=== PATIENT | female | born 1965 | race Caucasian/White ===

== ENCOUNTER 2017-04-08 07:27 | Day surgery (SDC) | payer BC, OTHER ==
[~2017-04-08 07:27] MED LIST: Sodium Chloride 0.9% 10 ML Syringe FLUSH PRN; Sodium Chloride 0.9% 2.5 ML Syringe FLUSH PRN; ceFAZolin 2 GM in Premix Bag 1 BAG IV ONE
[2017-04-08] MEDS ORDERED: Fluorescein 5 ML Vial ONE (07:36)
[2017-04-08] MEDS: Lactated Ringers 1,000 ML IV SCH ×2 (07:48→11:55)
[2017-04-08] MEDS ORDERED: Octyl 2-Cyanoacrylate 1 Tube ONE (07:57)
--- NOTE | 2017-04-08 08:21 | PCM.PREANE ---
Preanesthetic Assessment - Anesthesia/Transfusion/Family Hx Anesthesia History: Prior Anesthesia Reaction Type of Anesthesia Reaction: Excessive Nausea/Vomiting Family History of Anesthesia Reaction: No Transfusion History: No Prior Transfusion(s) - Review of Systems General: No Symptoms Pulmonary: No Symptoms Cardiovascular: No Symptoms Gastrointestinal: No Symptoms Neurological: No Symptoms Other: Reports: None - Physical Assessment NPO Status Date: 04/07/17 O2 Sat by Pulse Oximetry: 97 Respiratory Rate: 16 Vital Signs: Last Vital Signs Temp 96.5 C H 04/08/17 07:46 Pulse 75 04/08/17 07:46 Resp 16 04/08/17 07:46 BP 125/77 04/08/17 07:46 Pulse Ox 97 04/08/17 07:46 Height: 1.55 m Weight: 73.482 kg ASA Class: 2 Mental Status: Alert & Oriented x3 Airway Class: Mallampati = 2 Dentition: Reports: Normal Dentition ROM/Head Extension: Full Lungs: Clear to Auscultation, Normal Respiratory Effort Cardiovascular: Regular Rate, Regular Rhythm - Lab Values: Laboratory Last Values HCG, Qual NEGATIVE (NEG) 04/07/17 09:00 Blood Type A POSITIVE 04/07/17 09:00 Antibody Screen NEGATIVE 04/07/17 09:00 - Allergies Allergies/Adverse Reactions: Allergies Allergy/AdvReac Type Severity Reaction Status Date / Time Penicillins Allergy Swelling Verified 04/05/17 12:46 - Anesthesia Plan Pre-Op Medication Ordered: Other (scop patch) - Acknowledgements Anesthesia Type Planned: General Anesthesia Pt an Appropriate Candidate for the Planned Anesthesia: Yes Alternatives and Risks of Anesthesia Discussed w Pt/Guardian: Yes Pt/Guardian Understands and Agrees with Anesthesia Plan: Yes PreAnesthesia Questionnaire HEENT History: Reports: Other (See Below) Other HEENT History: wears glasses Cardiovascular History: Reports: Hypertension Respiratory History: Reports: None Gastrointestinal History: Reports: GERD Genitourinary History: Reports: None 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: Musculoskeletal History: Reports: Osteoarthritis Neurological History: Reports: None Psychiatric History: Reports: Anxiety Endocrine/Metabolic History: Reports: None - Past Surgical History Head Surgeries/Procedures: Reports: None Female Surgical History: Reports: Section, Tubal Ligation, Other ( See Below) Other Female Surgeries/Procedures: hx colposcopy cervix with bx, abdominoplasty Musculoskeletal Surgical History: Reports: Arthroscopic Knee Dermatological Surgical History: Reports: Plastic Surgical Reconstruction/Repair - SUBSTANCE USE Smoking Status *Q: Never Smoker Recreational Drug Use History: No - HOME MEDS Home Medications: Home Meds Metoprolol Succinate 25 mg PO DAILY 04/05/17 [History] Omeprazole 40 mg PO DAILY 04/05/17 [History] Triamterene/Hydrochlorothiazid [Triamterene-HCTZ 37.5-25 MG] 1 tab PO DAILY PRN 04/05/17 [History] - CURRENT (IN HOUSE) MEDS Current Meds: Current Medications Lactated Ringer's (Ringers, Lactated) 1,000 mls @ 125 mls/hr IV ASDIRECTED GAEL Last Admin: 04/08/17 07:48 Dose: 125 mls/hr Sodium Chloride (Saline Flush) 10 ml FLUSH ASDIRECTED PRN PRN Reason: Keep Vein Open Sodium Chloride (Saline Flush) 2.5 ml FLUSH ASDIRECTED PRN PRN Reason: Keep Vein Open Discontinued Medications Fluorescein Sodium (Ak-Fluor) Confirm Administered Dose 5 ml .ROUTE .STK-MED ONE Stop: 04/08/17 07:37 Cefazolin Sodium/Dextrose 2 gm (/ Premix) 50 mls @ 100 mls/hr IV ONETIME ONE Stop: 04/07/17 14:15 Octyl Cyanoacrylate (Dermabond Advance) Confirm Administered Dose 1 applic .ROUTE .STK-MED ONE Stop: 04/08/17 07:58
[2017-04-08] MEDS ORDERED: Scopolamine 1.5 MG Transdermal Patch TRDERM PRN (08:22)
[2017-04-08] MEDS ORDERED: Scopolamine 1.5 MG Transdermal Patch ONE (08:28)
[2017-04-08] MEDS ORDERED: Propofol 200 MG/20 ML SDV ONE ×2 (08:29→10:24)
[2017-04-08] MEDS ORDERED: Lidocaine 2% 5 ML SDV ONE (08:29)
[2017-04-08] MEDS ORDERED: Midazolam 1 MG/ML 2 ML SDV ONE (08:29)
[2017-04-08] MEDS ORDERED: fentaNYL 100 MCG/2 ML SDV ONE (08:29)
[2017-04-08] MEDS ORDERED: Ondansetron 4 MG/2 ML SDV ONE (08:30)
[2017-04-08] MEDS ORDERED: Neostigmine Methylsulfate 1 MG/ML 5 ML Syringe ONE (08:30)
[2017-04-08] MEDS ORDERED: Ketorolac 30 MG/ML SDV ONE (08:30)
[2017-04-08] MEDS ORDERED: Rocuronium 10 MG/ML 10 ML Syringe ONE (08:30)
[2017-04-08] MEDS ORDERED: HYDROmorphone 2 MG/ML Syringe ONE (08:35)
[2017-04-08] MEDS ORDERED: Clindamycin Phosphate in D5W 50 ML ONE (09:02)
[2017-04-08] MEDS ORDERED: Clindamycin Phosphate in D5W 600 MG in Premix Bag 50 BAG IV ONE ×2 (09:02)
[2017-04-08] MEDS ORDERED: Furosemide 40 MG/4 ML VIAL ONE (09:22)
[2017-04-08] MEDS ORDERED: ePHEDrine 50 MG/ML SDV ONE ×3 (09:23→11:06)
[2017-04-08] MEDS ORDERED: fentaNYL 100 MCG/2 ML SDV IVPUSH PRN (09:55)
[2017-04-08] MEDS ORDERED: HYDROmorphone 2 MG/ML Syringe IVPUSH ONE (09:55)
[2017-04-08] MEDS ORDERED: Promethazine 25 MG/ML SDV IM PRN (10:32)
[2017-04-08] MEDS ORDERED: Ondansetron 4 MG/2 ML SDV IVPUSH PRN (10:32)
[2017-04-08] MEDS ORDERED: Morphine 2 MG/ML Syringe IVPUSH PRN (10:32)
[2017-04-08] MEDS ORDERED: Acetaminophen/oxyCODONE 325-5 MG Tab PO PRN (10:32)
[2017-04-08] MEDS ORDERED: Ketorolac 30 MG/ML SDV IVPUSH ONE (10:32)
[2017-04-08] MEDS ORDERED: Morphine 4 MG/ML Syringe IVPUSH PRN (10:32)
[2017-04-08] MEDS ORDERED: Ketorolac 30 MG/ML SDV IVPUSH PRN (10:32)
--- NOTE | 2017-04-08 10:37 | PCM.OPNOTE ---
- General Post-Op/Procedure Note Date of Surgery/Procedure: 04/08/17 Pre Op Diagnosis: Bleeding Post-Op Diagnosis: Same Anesthesia Technique: General ET Tube Primary Surgeon: Ollie Downey Preflight Mechanic: Cesia Ruvalcaba EBL in mLs: 70 Complications: None Condition: Good
--- NOTE | 2017-04-08 10:49 | PCM.POSTAN ---
POST ANESTHESIA ASSESSMENT - MENTAL STATUS Mental Status: Alert, Oriented - RESPIRATORY Respiratory Status: Respiratory Rate WNL, Airway Patent, O2 Saturation Stable - CARDIOVASCULAR CV Status: Pulse Rate WNL, Blood Pressure Stable - GASTROINTESTINAL GI Status: No Symptoms - POST OP HYDRATION Hydration Status: Adequate & Stable
--- NOTE | 2017-04-08 11:53 | OR ---
SURGEON: Ollie Downey MD DATE OF PROCEDURE: 04/08/2017 PREOPERATIVE DIAGNOSIS: Menometrorrhagia. POSTOPERATIVE DIAGNOSIS: Menometrorrhagia. OPERATION PERFORMED: Total laparoscopic hysterectomy, laparoscopic bilateral salpingo-oophorectomy, and cystoscopy. PRODUCTION HARDENER: OPHELIA Bahena ANESTHESIA: General endotracheal intubation, Carlitos Jones and Dr. Gama. ESTIMATED BLOOD LOSS: 70 mL. COMPLICATIONS: None. FINDINGS: Uterus about 10-week size, both ovaries essentially were normal. There was adhesion from her previous section around the cervix. INDICATION FOR SURGERY: [place] refer to the admit note. DESCRIPTION OF PROCEDURE: The patient was brought to the OR, properly identified, and after adequate level of general anesthesia, the Morales catheter was placed in the bladder and the Mc surgical manipulator was placed and appropriate balloon was inflated, and the operation shifted abdominally. Stab wound done beneath the umbilicus. The Veress needle was placed in the peritoneal cavity and that cavity insufflated to 6 L of carbon dioxide. The skin incision was enlarged to accommodate the 5 mm trocar and utilizing the Visiport technique the abdomen was entered laparoscopically. Once we did that, we placed the patient in steep Trendelenburg and intestine was reflected away from the operative field and 10- 12 trocar placed in the left iliac fossa and 5 mm trocar in the right iliac fossa. Operation started by identifying the landmark of the pelvis, then next step is the superior pedicle coagulated and transected using the Nnamdi Harmonic scapula on both sides making sure the ureter is away from harm's way. The round ligament coagulated and transected in the same manner and then the anterior leaf of the broad ligament dissected downward medially pushing the bladder completely away from the operative field, and then the uterine vessel was coagulated and transected at the level of the internal rings using the Nnamdi Harmonic scapula, and circular incision around the tip of the manipulator done, detaching the cervix from its attachment to the vagina. Inspection of the pelvis shows no oozing and no bleeding. We proceeded to close the vaginal cuff laparoscopically using 2-0 PDS interrupted. As I inspected the pedicles and dissection of the base of the bladder, I have noticed that there is thinning of the serosal layer of the bladder because of the dissection, so prophylactically I placed three PDS sutures around this area to approximate the serosa of the bladder and restoring back to normal anatomy, and I am just going to leave the Morales catheter in the bladder for couple of days postoperatively to make sure that the bladder is healed adequately. Once we did that and then the abdomen was deflated and Morales catheter was removed, cystoscopy was performed, the bladder was fine, and both ureteric orifices were seen with the dye coming from both of them. Thus, the patency of both ureters were verified. Satisfied with these findings, the instrument and hardware were retrieved from the abdomen and the vagina, the Morales catheter replaced back in the bladder for drainage and the multiple laparoscopic incisions were closed in layers. Instrument and sponge count were correct. The patient tolerated the procedure well and went to recovery room in stable general condition. PRIYA / VAIBHAV /[id number]
[2017-04-09] MEDS: Acetaminophen/oxyCODONE 325-5 MG Tab PO PRN ×2 (00:14→08:29)
[2017-04-09 05:50] LABS: CHLORIDE,CL 106 mmol/L (98-110); SODIUM,NA 137 mmol/L (136-146)
--- NOTE | 2017-04-09 08:40 | PCM.SURGPN ---
- General Info Date of Service: 04/09/17 POD#: 1 Functional Status: Reports: Pain Controlled - Review of Systems General: Reports: No Symptoms HEENT: Reports: No Symptoms Pulmonary: Reports: No Symptoms Cardiovascular: Reports: No Symptoms Gastrointestinal: Reports: No Symptoms Genitourinary: Reports: No Symptoms Musculoskeletal: Reports: No Symptoms Skin: Reports: No Symptoms Neurological: Reports: No Symptoms Psychiatric: Reports: No Symptoms - Patient Data Vitals - Most Recent: Last Vital Signs Temp 37.3 C 04/09/17 05:00 Pulse 65 04/09/17 05:00 Resp 20 04/09/17 05:00 BP 94/51 L 04/09/17 05:00 Pulse Ox 94 L 04/09/17 05:00 Weight - Most Recent: 73.482 kg I&O - Last 24 Hours: Intake & Output 04/08/17 04/09/17 04/09/17 22:59 06:59 14:59 Intake Total 2203 700 Output Total 400 1150 Balance 1803 -450 Lab Results Last 24 Hrs: Laboratory Results - last 24 hr 04/09/17 04/09/17 Range/Units 04:41 04:41 WBC 9.33 (4.0-11.0) K/uL RBC 3.47 L (4.30-5.90) M/uL Hgb 10.3 L (12.0-16.0) g/dL Hct 31.7 L (36.0-46.0) % MCV 91.4 (80.0-98.0) fL MCH 29.7 (27.0-32.0) pg MCHC 32.5 (31.0-37.0) g/dL RDW Std Deviation 44.5 (28.0-62.0) fl RDW Coeff of Froylan 14 (11.0-15.0) % Plt Count 253 (150-400) K/uL MPV 9.30 (7.40-12.00) fL Neut % (Auto) 77.9 (48.0-80.0) % Lymph % (Auto) 15.1 L (16.0-40.0) % [place] % (Auto) 5.7 (0.0-15.0) % Eos % (Auto) 1.1 (0.0-7.0) % Baso % (Auto) 0.2 (0.0-1.5) % Neut # (Auto) 7.3 H (1.4-5.7) K/uL Lymph # (Auto) 1.4 (0.6-2.4) K/uL [place] # (Auto) 0.5 (0.0-0.8) K/uL Eos # (Auto) 0.1 (0.0-0.7) K/uL Baso # (Auto) 0.0 (0.0-0.1) K/uL Nucleated RBC % 0.0 /100WBC Nucleated RBCs # 0 K/uL Sodium 137 (136-146) mmol/L Potassium 4.0 (3.5-5.1) mmol/L Chloride 106 (98-110) mmol/L Carbon Dioxide 24 (21-31) mmol/L BUN 9 (6.0-23.0) mg/dL Creatinine 0.7 (0.6-1.5) mg/dL Est Cr Clr Drug Dosing 71.75 mL/min Estimated GFR (MDRD) > 60.0 ml/min Glucose 103 (60-110) mg/dL Calcium 8.0 L (8.8-10.8) mg/dL Med Orders - Current: Current Medications Fentanyl (Sublimaze) 50 mcg IVPUSH Q5M PRN PRN Reason: Pain (severe 7-10) Stop: 04/09/17 09:55 Lactated Ringer's (Ringers, Lactated) 1,000 mls @ 125 mls/hr IV ASDIRECTED [facility] Last Infusion: 04/08/17 21:15 Dose: Infused Ketorolac Tromethamine (Toradol) 30 mg IVPUSH Q6H PRN PRN Reason: Pain (severe 7-10) Stop: 04/13/17 10:32 Last Admin: 04/08/17 18:50 Dose: 30 mg Morphine Sulfate (Morphine) 2 mg IVPUSH Q2H PRN PRN Reason: Pain (severe 7-10) Morphine Sulfate (Morphine) 4 mg IVPUSH Q2H PRN PRN Reason: Pain (severe 7-10) Ondansetron HCl (Zofran) 4 mg IVPUSH Q6H PRN PRN Reason: Nausea/Vomiting Oxycodone/Acetaminophen (Percocet 325-5 Mg) 1 tab PO Q4H PRN PRN Reason: Pain (moderate 4-6) Last Admin: 04/08/17 16:47 Dose: 1 tab Oxycodone/Acetaminophen (Percocet 325-5 Mg) 2 tab PO Q4H PRN PRN Reason: Pain (moderate 4-6) Last Admin: 04/09/17 08:29 Dose: 2 tab Promethazine HCl (Phenergan) 25 mg IM Q6H PRN PRN Reason: Nausea/Vomiting Scopolamine (Transderm-Scop) 1.5 mg TRDERM Q72H PRN PRN Reason: Nausea/Vomiting Sodium Chloride (Saline Flush) 10 ml FLUSH ASDIRECTED PRN PRN Reason: Keep Vein Open Sodium Chloride (Saline Flush) 2.5 ml FLUSH ASDIRECTED PRN PRN Reason: Keep Vein Open Discontinued Medications Ephedrine Sulfate (Ephedrine Sulfate) Confirm Administered Dose 50 mg .ROUTE .STK-MED ONE Stop: 04/08/17 09:24 Ephedrine Sulfate (Ephedrine Sulfate) Confirm Administered Dose 50 mg .ROUTE .STK-MED ONE Stop: 04/08/17 11:06 Last Admin: 04/08/17 13:05 Dose: Not Given Ephedrine Sulfate (Ephedrine Sulfate) Confirm Administered Dose 50 mg .ROUTE .STK-MED ONE Stop: 04/08/17 11:07 Last Admin: 04/08/17 13:05 Dose: Not Given Fentanyl (Sublimaze) Confirm Administered Dose 300 mcg .ROUTE .STK-MED ONE Stop: 04/08/17 08:30 Fluorescein Sodium (Ak-Fluor) Confirm Administered Dose 5 ml .ROUTE .STK-MED ONE Stop: 04/08/17 07:37 Furosemide (Lasix) Confirm Administered Dose 40 mg .ROUTE .STK-MED ONE Stop: 04/08/17 09:23 Glycopyrrolate () Confirm Administered Dose 1 mg .ROUTE .STK-MED ONE Stop: 04/08/17 08:31 Hydromorphone HCl (Dilaudid) Confirm Administered Dose 2 mg .ROUTE .STK-MED ONE Stop: 04/08/17 08:36 Hydromorphone HCl (Dilaudid) 0 mg IVPUSH ONETIME ONE Stop: 04/08/17 09:56 Last Admin: 04/08/17 13:04 Dose: Not Given Cefazolin Sodium/Dextrose 2 gm (/ Premix) 50 mls @ 100 mls/hr IV ONETIME ONE Stop: 04/07/17 14:15 Last Admin: 04/08/17 13:05 Dose: Not Given Clindamycin Phosphate 600 mg/ (Premix) 50 mls @ 100 mls/hr IV ONETIME ONE Stop: 04/08/17 09:31 Last Admin: 04/08/17 09:00 Dose: 100 mls/hr Clindamycin Phosphate (Cleocin In D5w) Confirm Administered Dose 50 mls @ as directed .ROUTE .STK-MED ONE Stop: 04/08/17 09:03 Last Admin: 04/08/17 13:04 Dose: Not Given Ketorolac Tromethamine (Toradol) Confirm Administered Dose 30 mg .ROUTE .STK- MED ONE Stop: 04/08/17 08:31 Ketorolac Tromethamine (Toradol) 30 mg IVPUSH ONETIME ONE Stop: 04/08/17 10:33 Last Admin: 04/08/17 13:04 Dose: Not Given Lidocaine (Xylocaine-Mpf 2%) Confirm Administered Dose 10 ml .ROUTE .STK-MED ONE Stop: 04/08/17 08:30 Midazolam HCl (Versed 1 Mg/Ml) Confirm Administered Dose 2 mg .ROUTE .STK-MED ONE Stop: 04/08/17 08:30 Neostigmine Methylsulfate (Neostigmine) Confirm Administered Dose 5 mg .ROUTE .STK-MED ONE Stop: 04/08/17 08:31 Octyl Cyanoacrylate (Dermabond Advance) Confirm Administered Dose 1 applic .ROUTE .STK-MED ONE Stop: 04/08/17 07:58 Ondansetron HCl (Zofran) Confirm Administered Dose 4 mg .ROUTE .STK-MED ONE Stop: 04/08/17 08:31 Propofol (Diprivan 20 Ml) Confirm Administered Dose 400 mg .ROUTE .STK-MED ONE Stop: 04/08/17 08:30 Propofol (Diprivan 20 Ml) Confirm Administered Dose 200 mg .ROUTE .STK-MED ONE Stop: 04/08/17 10:25 Rocuronium [place] (Zemuron) Confirm Administered Dose 100 mg .ROUTE .STK-MED ONE Stop: 04/08/17 08:31 Scopolamine (Transderm-Scop) Confirm Administered Dose 1.5 mg .ROUTE .STK-MED ONE Stop: 04/08/17 08:29 Last Admin: 04/08/17 08:33 Dose: 1.5 mg - Exam Wound/Incisions: Healing Well General: Alert, Oriented HEENT: Pupils Equal Neck: Supple Lungs: Clear to Auscultation, Normal Respiratory Effort Cardiovascular: Regular Rate, Regular Rhythm GI/Abdominal Exam: Normal Bowel Sounds, Soft, Non-Tender, No Organomegaly, No Distention, No Abnormal Bruit, No Mass, Pelvis Stable Extremities: Normal Inspection, Normal Range of Motion, Non-Tender, No Pedal Edema, Normal Capillary Refill Skin: Warm, Dry, Intact Neurological: No New Focal Deficit Psy/Mental Status: Alert, Normal Affect, Normal Mood - Problem List Review Problem List Initiated/Reviewed/Updated: Yes - My Orders Last 24 Hours: Active Orders 24 hr Category Date Time Status Patient Status [ADT] Routine ADT 04/08/17 10:32 Active Antiembolic Devices [RC] PER UNIT ROUTINE Care 04/08/17 10:33 Active Communication Order [RC] DAILY Care 04/08/17 13:21 Active Notify Provider Vital Signs [RC] ASDIRECTED Care 04/08/17 10:32 Active Oxygen Therapy [RC] ASDIRECTED Care 04/08/17 10:32 Active RT Incentive Spirometry [RC] Q2HWA Care 04/08/17 10:32 Active Up With Assistance [RC] PER UNIT ROUTINE Care 04/08/17 10:32 Active Up ad Laura [RC] PER UNIT ROUTINE Care 04/08/17 10:32 Active Urinary Catheter Removal [RC] Per Unit Routine Care 04/08/17 10:32 Active Vital Signs [RC] PER UNIT ROUTINE Care 04/08/17 10:32 Active Regular Diet [DIET] Diet 04/08/17 Lunch Active Acetaminophen/oxyCODONE [Percocet 325-5 MG] Med 04/08/17 10:32 Active 1 tab PO Q4H PRN Acetaminophen/oxyCODONE [Percocet 325-5 MG] Med 04/08/17 10:32 Active 2 tab PO Q4H PRN Ketorolac [Toradol] Med 04/08/17 10:32 Active 30 mg IVPUSH Q6H PRN Morphine Med 04/08/17 10:32 Active 2 mg IVPUSH Q2H PRN Morphine Med 04/08/17 10:32 Active 4 mg IVPUSH Q2H PRN Ondansetron [Zofran] Med 04/08/17 10:32 Active 4 mg IVPUSH Q6H PRN Promethazine [Phenergan] Med 04/08/17 10:32 Active 25 mg IM Q6H PRN Scopolamine [Transderm-Scop] Med 04/08/17 08:22 Active 1.5 mg TRDERM Q72H PRN fentaNYL [Sublimaze] Med 04/08/17 09:55 Active 50 mcg IVPUSH Q5M PRN Peripheral IV Discontinue [OM.PC] Routine Oth 04/08/17 10:32 Ordered Sequential Compression Device [OM.PC] Per Unit Routine Oth 04/08/17 10:32 Ordered Resuscitation Status Routine Resus Stat 04/08/17 10:32 Ordered Medication Orders Fentanyl (Sublimaze) 50 mcg IVPUSH Q5M PRN PRN Reason: Pain (severe 7-10) Stop: 04/09/17 09:55 Lactated Ringer's (Ringers, Lactated) 1,000 mls @ 125 mls/hr IV ASDIRECTED GAEL Last Infusion: 04/08/17 21:15 Dose: 125 mls/hr Admin: 04/08/17 11:55 Dose: 125 mls/hr Infusion: 04/08/17 11:55 Dose: 125 mls/hr Admin: 04/08/17 07:48 Dose: 125 mls/hr Ketorolac Tromethamine (Toradol) 30 mg IVPUSH Q6H PRN PRN Reason: Pain (severe 7-10) Stop: 04/13/17 10:32 Last Admin: 04/08/17 18:50 Dose: 30 mg Morphine Sulfate (Morphine) 2 mg IVPUSH Q2H PRN PRN Reason: Pain (severe 7-10) Morphine Sulfate (Morphine) 4 mg IVPUSH Q2H PRN PRN Reason: Pain (severe 7-10) Ondansetron HCl (Zofran) 4 mg IVPUSH Q6H PRN PRN Reason: Nausea/Vomiting Oxycodone/Acetaminophen (Percocet 325-5 Mg) 1 tab PO Q4H PRN PRN Reason: Pain (moderate 4-6) Last Admin: 04/08/17 16:47 Dose: 1 tab Oxycodone/Acetaminophen (Percocet 325-5 Mg) 2 tab PO Q4H PRN PRN Reason: Pain (moderate 4-6) Last Admin: 04/09/17 08:29 Dose: 2 tab Admin: 04/09/17 00:14 Dose: 2 tab Promethazine HCl (Phenergan) 25 mg IM Q6H PRN PRN Reason: Nausea/Vomiting Scopolamine (Transderm-Scop) 1.5 mg TRDERM Q72H PRN PRN Reason: Nausea/Vomiting Sodium Chloride (Saline Flush) 10 ml FLUSH ASDIRECTED PRN PRN Reason: Keep Vein Open Sodium Chloride (Saline Flush) 2.5 ml FLUSH ASDIRECTED PRN PRN Reason: Keep Vein Open - Assessment Assessment (Free Text/Narrative):: Status post evaluation BSO and cystoscopy postoperative day #1 the patient is doing well and she is going home today - Plan Plan (Free Text/Narrative):: Postvasectomy instruction is given to the patient and patient instructed how to take care of her Morales catheter she will be sent home with a Morales catheter prophylactically prescription for Percocet 7.5/325 for pain is given a prescription for Macrobid 100 mg by mouth twice a day for 7-10 days is given follow-up examination next week
== END 2017-04-09 11:37 | disposition home or self-care (01) ==
LOC: MW.SDS 07:27 → MW.MS 10:43 → MW.SDS 04-09 11:37
PROVIDERS: ATTEND Obstetrics & Gynecology
DX: N80.0 Endometriosis of uterus (principal); K21.9 Gastro-esophageal reflux disease without esophagitis; I10 Essential (primary) hypertension; F32.9 Major depressive disorder, single episode, unspecified; F43.20 Adjustment disorder, unspecified; Z88.0 Allergy status to penicillin; Z79.899 Other long term (current) drug therapy; Z98.890 Other specified postprocedural states; Z98.51 Tubal ligation status
CPT/HCPCS: 36415; 58552; 80048; 84703; 85025; 86850; 86900; 86901; A9270; J1170; J1885; J1940; J2250; J2405; J3010; J7120; 00840; 88307; J2704

== ENCOUNTER 2017-09-29 13:07 | Observation (INO) | payer BC, OTHER ==
[2017-09-29] MEDS ORDERED: Famotidine 20 MG/2 ML SDV IVPUSH ONE (13:15)
[2017-09-29] MEDS ORDERED: Sodium Chloride 0.9% 10 ML Syringe FLUSH PRN (13:15)
[2017-09-29] MEDS ORDERED: Sodium Chloride 0.9% 2.5 ML Syringe FLUSH PRN (13:15)
[2017-09-29] MEDS ORDERED: Sodium Chloride 0.9% 1,000 ML IV ONE (13:15)
[2017-09-29] MEDS ORDERED: Aspirin 81 MG Tab.Chew PO ONE ×2 (13:15→13:20)
--- NOTE | 2017-09-29 13:23 | EDM.PDOC ---
ED HPI GENERAL MEDICAL PROBLEM - General Chief Complaint: Chest Pain Stated Complaint: CHEST PAIN Time Seen by Provider: 09/29/17 13:21 Source of Information: Reports: Patient History Limitations: Reports: No Limitations - History of Present Illness INITIAL COMMENTS - FREE TEXT/NARRATIVE: HISTORY AND PHYSICAL: []52-year-old presenting with midsternal chest pain History of Present Illness: []Patient said pain started at 8:00 this morning. 11/14. Patient has strong family history of heart disease myocardial infarction One of her uncles around age of 50 with [place] father from cancer Relates to being under a lot of stress uncle just one month call MOther diagnosed with lung cancer [place] ill Review of Systems: As per history of present illness and below otherwise all systems reviewed and negative. Past medical history: As per history of present illness and as reviewed below otherwise noncontributory. Surgical history: As per history of present illness and as reviewed below otherwise noncontributory. Social history: No reported history of drug or alcohol abuse. Family history: As per history of present illness and as reviewed below otherwise noncontributory. Physical exam: Alert and oriented female answering questions in full sentences without shortness of breath. HEENT: Atraumatic, normocehpalic, pupils reactive, negative for conjunctival pallor or scleral icterus, mucous membranes moist, throat clear, neck supple, nontender, trachea midline. Lungs: Clear to auscultation, breath sounds equal bilaterally, chest non tender. Heart: S1S2, regular, negative for clicks, rubs, or JVD. Abdomen: Soft, nondistended, nontender. Negative for masses or hepatossplenmegaly. Negative for costovertebral tenderness. Pelvis: Stable nontender. Genitourinary: Deferred. Rectal: Deferred Extremities: Atraumatic, negative for cords or calf pain. Neurovascular unremarkable. Neuro: Awake, alert, oriented. Cranial nerves II through XII unremarkable. Cerebellum unremarkable. Motor and sensory unremarkable throughout. Exam nonfocal. Patient was given Nitrostat 2 and blood pressure dropped to 114/47 IV fluids are being given EKG repeated after 3 nitros pain is [address] depression that was minimal and anterior lateral inferior leads has decreased D-dimer is elevated will obtain chest CTA with contrast r/o PE. Negative CTA Repeat EKG and troponin pending Discussed this patient with Dr. Walls who has accepted this patient for observation on telemetry had search Diagnostics: []CBC CMP Troponin, PT INR, UA and chest x-ray, EKG d-dimer Therapeutics: []Aspirin Nitrostat IV fluids Impression: [] Plan: [] Definitive disposition and diagnosis as appropriate pending reevaluation and review of above. 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 Pain Score (Numeric/FACES): 6 - Related Data Allergies Allergy/AdvReac Type Severity Reaction Status Date / Time Penicillins Allergy Swelling Verified 09/29/17 13:11 Home Meds: Home Meds Metoprolol Succinate 25 mg PO DAILY 04/05/17 [History] Omeprazole 40 mg PO DAILY 04/05/17 [History] Triamterene/Hydrochlorothiazid [Triamterene-HCTZ 37.5-25 MG] 1 tab PO DAILY PRN 04/05/17 [History] Estradiol 1 mg PO DAILY 09/29/17 [History] Past Medical History HEENT History: Reports: Other (See Below) Other HEENT History: wears glasses Cardiovascular History: Reports: Hypertension Respiratory History: Reports: None Gastrointestinal History: Reports: GERD Genitourinary History: Reports: None 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: Musculoskeletal History: Reports: Osteoarthritis Neurological History: Reports: None Psychiatric History: Reports: Anxiety Endocrine/Metabolic History: Reports: None - Infectious Disease History Infectious Disease History: Reports: Chicken Pox - Past Surgical History Head Surgeries/Procedures: Reports: None Female Surgical History: Reports: Section, Hysterectomy, Tubal Ligation, Other (See Below) Other Female Surgeries/Procedures: hx colposcopy cervix with bx, abdominoplasty Musculoskeletal Surgical History: Reports: Arthroscopic Knee Dermatological Surgical History: Reports: Plastic Surgical Reconstruction/Repair Social & Family History - Family History Cardiac: Reports: CAD Endocrine/Metabolic: Reports: Diabetes, Type I - Tobacco Use Smoking Status *Q: Never Smoker Second Hand Smoke Exposure: No - Caffeine Use Caffeine Use: Reports: Coffee - Alcohol Use Days Per Week of Alcohol Use: 2 Number of Drinks Per Day: 4 Total Drinks Per Week: 8 - Recreational Drug Use Recreational Drug Use: No Drug Use in Last 12 Months: No ED ROS GENERAL - Review of Systems Review Of Systems: ROS reveals no pertinent complaints other than HPI. ED EXAM, GENERAL - Physical Exam Exam: See Below (see dictation) EKG INTERPRETATION EKG Date: 09/29/17 Rhythm: NSR Rate (Beats/Min): 76 Comparison: NA - No Prior EKG Course - Vital Signs Last Recorded V/S: Last Vital Signs Temp 37.1 C 09/29/17 14:48 Pulse 77 09/29/17 14:48 Resp 18 09/29/17 14:48 BP 128/66 09/29/17 14:48 Pulse Ox 99 09/29/17 14:48 - Orders/Labs/Meds Orders: Active Orders 24 hr Category Date Time Status Patient Status [ADT] Stat ADT 09/29/17 16:33 Ordered Cardiac Monitoring [RC] . DIRECTED Care 09/29/17 13:15 Active EKG Documentation Completion [RC] STAT Care 09/29/17 13:16 Active EKG Documentation Completion [RC] STAT Care 09/29/17 14:10 Active EKG Documentation Completion [RC] STAT Care 09/29/17 16:22 Active Oxygen Therapy [RC] ASDIRECTED Care 09/29/17 13:15 Active TROPONIN I [CHEM] Stat Lab 09/29/17 16:22 Ordered UA W/MICROSCOPIC [URIN] Stat Lab 09/29/17 13:16 Ordered Sodium Chloride 0.9% [Saline Flush] Med 09/29/17 13:15 Active 10 ml FLUSH ASDIRECTED PRN Sodium Chloride 0.9% [Saline Flush] Med 09/29/17 13:15 Active 2.5 ml FLUSH ASDIRECTED PRN Saline Lock Insert [OM.PC] Stat Oth 09/29/17 13:15 Ordered Medication Orders Sodium Chloride (Saline Flush) 10 ml FLUSH ASDIRECTED PRN PRN Reason: Keep Vein Open Sodium Chloride (Saline Flush) 2.5 ml FLUSH ASDIRECTED PRN PRN Reason: Keep Vein Open Labs: Laboratory Tests 09/29/17 09/29/17 09/29/17 Range/Units 13:30 13:30 13:30 WBC 9.47 (4.0-11.0) K/uL RBC 4.30 (4.30-5.90) M/uL Hgb 11.9 L (12.0-16.0) g/dL Hct 37.1 (36.0-46.0) % MCV 86.3 (80.0-98.0) fL MCH 27.7 (27.0-32.0) pg MCHC 32.1 (31.0-37.0) g/dL RDW Std Deviation 45.8 (28.0-62.0) fl RDW Coeff of Froylan 15 (11.0-15.0) % Plt Count 378 (150-400) K/uL MPV 9.10 (7.40-12.00) fL Neut % (Auto) 73.5 (48.0-80.0) % Lymph % (Auto) 20.1 (16.0-40.0) % [place] % (Auto) 4.5 (0.0-15.0) % Eos % (Auto) 1.3 (0.0-7.0) % Baso % (Auto) 0.6 (0.0-1.5) % Neut # (Auto) 7.0 H (1.4-5.7) K/uL Lymph # (Auto) 1.9 (0.6-2.4) K/uL [place] # (Auto) 0.4 (0.0-0.8) K/uL Eos # (Auto) 0.1 (0.0-0.7) K/uL Baso # (Auto) 0.1 (0.0-0.1) K/uL Nucleated RBC % 0.0 /100WBC Nucleated RBCs # 0 K/uL INR 1.02 D-Dimer, Quantitative 0.85 H (0.0-0.52) mg/LFEU Sodium 138 (136-145) mmol/L Potassium 4.0 (3.5-5.1) mmol/L Chloride 105 (98-107) mmol/L Carbon Dioxide 25.4 (21.0-32.0) mmol/L BUN 11 (7.0-18.0) mg/dL Creatinine 0.8 (0.6-1.0) mg/dL Est Cr Clr Drug Dosing 62.07 mL/min Estimated GFR (MDRD) > 60.0 ml/min Glucose 96 (74-106) mg/dL Calcium 8.7 (8.5-10.1) mg/dL Total Bilirubin 0.4 (0.2-1.0) mg/dL AST 27 (15-37) IU/L ALT 20 (14-63) IU/L Alkaline Phosphatase 78 (46-116) U/L Troponin I < 0.050 (0.000-0.056) ng/mL Total Protein 7.6 (6.4-8.2) g/dL Albumin 3.7 (3.4-5.0) g/dL Globulin 3.9 H (2.0-3.5) g/dL Albumin/Globulin Ratio 1.0 L (1.3-2.8) Meds: Medications Generic Name Dose Route Start Last Admin Trade Name Freq PRN Reason Stop Dose Admin Sodium Chloride 10 ml 09/29/17 13:15 Saline Flush FLUSH ASDIRECTED PRN Keep Vein Open Sodium Chloride 2.5 ml 09/29/17 13:15 Saline Flush FLUSH ASDIRECTED PRN Keep Vein Open Discontinued Medications Generic Name Dose Route Start Last Admin Trade Name Freq PRN Reason Stop Dose Admin Aspirin 324 mg 09/29/17 13:15 09/29/17 13:57 Aspirin PO 09/29/17 13:16 Not Given ONETIME ONE Aspirin 324 mg 09/29/17 13:20 09/29/17 13:36 Aspirin PO 09/29/17 13:21 324 mg ONETIME ONE Administration Famotidine 20 mg 09/29/17 13:15 09/29/17 13:39 Pepcid IVPUSH 09/29/17 13:16 20 mg ONETIME ONE Administration Sodium Chloride 1,000 mls @ 999 mls/hr 09/29/17 13:15 09/29/17 13:40 Normal Saline IV 09/29/17 14:15 999 mls/hr .Bolus ONE Administration Iopamidol 100 ml 09/29/17 15:48 09/29/17 15:49 Isovue Multipack-370 (76%) IVPUSH 09/29/17 15:49 75 ml ONETIME STA Administration Nitroglycerin 0.4 mg 09/29/17 13:20 09/29/17 13:56 Nitrostat SL 0.4 mg Q5M PRN Administration Chest Pain Nitroglycerin Confirm 09/29/17 13:35 09/29/17 13:53 Nitrostat Administered 09/29/17 13:36 Not Given Dose 0.4 mg .ROUTE .STK-MED ONE Departure - Departure Time of Disposition: 16:36 Disposition: Refer to Observation Condition: Good Clinical Impression: Acute coronary syndrome Instructions: Nonspecific Chest Pain, [id number], Acute Coronary Syndrome Referrals: PCP,None [Primary Care Provider] - Forms: ED Department Discharge - My Orders Last 24 Hours: My Active Orders 09/29/17 13:15 Cardiac Monitoring [RC] . DIRECTED Oxygen Therapy [RC] ASDIRECTED Sodium Chloride 0.9% [Saline Flush] 10 ml FLUSH ASDIRECTED PRN Sodium Chloride 0.9% [Saline Flush] 2.5 ml FLUSH ASDIRECTED PRN Saline Lock Insert [OM.PC] Stat 09/29/17 13:16 EKG Documentation Completion [RC] STAT UA W/MICROSCOPIC [URIN] Stat 09/29/17 14:10 EKG Documentation Completion [RC] STAT 09/29/17 16:22 EKG Documentation Completion [RC] STAT TROPONIN I [CHEM] Stat 09/29/17 16:33 Patient Status [ADT] Stat - Assessment/Plan Last 24 Hours: My Active Orders 09/29/17 13:15 Cardiac Monitoring [RC] . DIRECTED Oxygen Therapy [RC] ASDIRECTED Sodium Chloride 0.9% [Saline Flush] 10 ml FLUSH ASDIRECTED PRN Sodium Chloride 0.9% [Saline Flush] 2.5 ml FLUSH ASDIRECTED PRN Saline Lock Insert [OM.PC] Stat 09/29/17 13:16 EKG Documentation Completion [RC] STAT UA W/MICROSCOPIC [URIN] Stat 09/29/17 14:10 EKG Documentation Completion [RC] STAT 09/29/17 16:22 EKG Documentation Completion [RC] STAT TROPONIN I [CHEM] Stat 09/29/17 16:33 Patient Status [ADT] Stat
[2017-09-29] MEDS ORDERED: Nitroglycerin 0.4 MG Tab.SL ONE (13:35)
[2017-09-29] MEDS: Nitroglycerin 0.4 MG Tab.SL SL PRN ×3 (13:37→13:56)
--- NOTE | 2017-09-29 13:53 | CR ---
EXAMINATION: Portable chest radiograph. HISTORY: Chest pain. FINDINGS: The trachea is midline. The cardiomediastinal silhouette is within normal limits. No pulmonary infilt rates, effusions or pneumothorax. Osseous structures appear unremarkable. IMPRESSION: No acute cardiopulmonary process.
[2017-09-29 14:11] LABS: CHLORIDE,CL 105 mmol/L (98-107); SODIUM,NA 138 mmol/L (136-145)
[2017-09-29] MEDS ORDERED: Iopamidol 755 MG/ML 500 ML Multipack Bottle IVPUSH STA (15:48)
--- NOTE | 2017-09-29 16:33 | CT ---
EXAMINATION: CTA chest HISTORY: Pain COMPARISON: Radiograph dated 09/29/2017 TECHNIQUE: Axial CT imaging obtained through the chest following the administration of 50 mL of Isovu e-370 in the left antecubital fossa. Coronal and sagittal reconstructions obtained. FINDINGS: The lungs are clear without focal consolidation. No pleural effusion or pneumothorax. The h eart is normal in size without a pericardial effusion. No mediastinal, hilar, or axillary lymphadenop athy. Thoracic aorta is normal in caliber. The central pulmonary arteries are patent. Visualized images of the upper abdomen appear normal. No suspicious osseous abnormalities identified. IMPRESSION: 1. No acute cardiopulmonary findings.
[2017-09-29] MEDS ORDERED: Morphine 4 MG/ML Syringe IVPUSH PRN (18:30)
[2017-09-29] MEDS ORDERED: Ondansetron 4 MG/2 ML SDV IVPUSH PRN (18:30)
[2017-09-29] MEDS ORDERED: Albuterol/Ipratropium 3.0-0.5 MG/3 ML Neb Soln NEB PRN (18:30)
[2017-09-29] MEDS ORDERED: Nitroglycerin 2% Oint 1 GM UD Packet TOP PRN (18:35)
[2017-09-29] MEDS ORDERED: Hydrochlorothiazide/Triamterene 25-37.5 Tab PO PRN (18:50)
[2017-09-29] MEDS ORDERED: atorvaSTATin 40 MG Tab PO SCH (21:00)
[2017-09-29] MEDS: Enoxaparin 100 MG/1 ML Syringe SUBCUT SCH (23:16)
[2017-09-30 05:31] LABS: CHLORIDE,CL 105 mmol/L (98-107); SODIUM,NA 136 mmol/L (136-145)
[2017-09-30] MEDS ORDERED: Omeprazole 20 MG Cap.CR PO SCH (07:00)
[2017-09-30] MEDS ORDERED: Metoprolol Succinate 25 MG Tab.ER PO SCH (09:00)
--- NOTE | 2017-09-30 10:46 | PCM.HP ---
H&P History of Present Illness - General Date of Service: 09/29/17 Admit Problem/Dx: Admission Diagnosis/Problem Admission Diagnosis/Problem Acute coronary syndrome Source of Information: Patient - History of Present Illness Initial Comments - Free Text/Narative: Patient presented to hospital due to chest pain localized in the middle of the chest that started in the morning around 8:30 and and subsided around 1;30 pm with NTG. Patient Blood pressure in the morning was 189/85 and she took her Bp medications. Intensity of pain was 7-8 /10. Onset of Symptoms: Reports: Today Location: Reports: Chest Quality: Reports: Pressure chest Pain Score (Numeric/FACES): 6 - Related Data Allergies/Adverse Reactions: Allergies Allergy/AdvReac Type Severity Reaction Status Date / Time Penicillins Allergy Swelling Verified 09/29/17 13:11 Home Medications: Home Meds Metoprolol Succinate 25 mg PO DAILY 04/05/17 [History] Omeprazole 40 mg PO DAILY 04/05/17 [History] Triamterene/Hydrochlorothiazid [Triamterene-HCTZ 37.5-25 MG] 1 tab PO DAILY PRN 04/05/17 [History] Estradiol 1 mg PO DAILY 09/29/17 [History] Past Medical History HEENT History: Reports: Other (See Below) Other HEENT History: wears glasses Cardiovascular History: Reports: Hypertension Respiratory History: Reports: None Gastrointestinal History: Reports: GERD Genitourinary History: Reports: None [employer] History: Reports: Musculoskeletal History: Reports: Osteoarthritis Neurological History: Reports: None Psychiatric History: Reports: Anxiety Endocrine/Metabolic History: Reports: None Hematologic History: Reports: Anesthesia Reaction Other Hematologic History: Excessive nausea and vomiting with anesthesia - Infectious Disease History Infectious Disease History: Reports: Chicken Pox - Past Surgical History Head Surgeries/Procedures: Reports: None Female Surgical History: Reports: Section, Hysterectomy, Tubal Ligation, Other (See Below) Other Female Surgeries/Procedures: hx colposcopy cervix with bx, abdominoplasty Musculoskeletal Surgical History: Reports: Arthroscopic Knee Dermatological Surgical History: Reports: Plastic Surgical Reconstruction/Repair Social & Family History - Family History Cardiac: Reports: CAD Endocrine/Metabolic: Reports: Diabetes, Type I - Tobacco Use Smoking Status *Q: Never Smoker Second Hand Smoke Exposure: No - Caffeine Use Caffeine Use: Reports: Coffee - Alcohol Use Days Per Week of Alcohol Use: 4 Number of Drinks Per Day: 4 Total Drinks Per Week: 16 - Recreational Drug Use Recreational Drug Use: No Drug Use in Last 12 Months: No H&P Review of Systems - Review of Systems: Review Of Systems: See Below General: Reports: No Symptoms HEENT: Reports: No Symptoms Pulmonary: Reports: No Symptoms Cardiovascular: Reports: Chest Pain Gastrointestinal: Reports: No Symptoms Genitourinary: Reports: No Symptoms Musculoskeletal: Reports: No Symptoms Skin: Reports: No Symptoms Psychiatric: Reports: No Symptoms Neurological: Reports: No Symptoms Hematologic/Lymphatic: Reports: No Symptoms Immunologic: Reports: No Symptoms Exam - Exam Exam: See Below - Vital Signs Vital Signs: Last Vital Signs Temp 98.1 F 09/30/17 08:00 Pulse 72 09/30/17 08:54 Resp 16 09/30/17 08:00 BP 107/70 09/30/17 08:54 Pulse Ox 97 09/30/17 08:00 Weight: 164 lb 14.4 oz - Exam General: Alert, Oriented, Cooperative HEENT: Conjunctiva Clear Neck: Supple, Trachea Midline, +2 Carotid Pulse wo Bruit Lungs: Clear to Auscultation, Normal Respiratory Effort Cardiovascular: Regular Rate, Regular Rhythm, Normal S1, Normal S2 GI/Abdominal Exam: Normal Bowel Sounds, Soft, Non-Tender, No Organomegaly Back Exam: Normal Inspection Extremities: Normal Inspection - Patient Data Lab Results Last 24 hrs: Laboratory Results - last 24 hr 09/29/17 09/29/17 09/29/17 Range/Units 13:30 13:30 13:30 WBC 9.47 (4.0-11.0) K/uL RBC 4.30 (4.30-5.90) M/uL Hgb 11.9 L (12.0-16.0) g/dL Hct 37.1 (36.0-46.0) % MCV 86.3 (80.0-98.0) fL MCH 27.7 (27.0-32.0) pg MCHC 32.1 (31.0-37.0) g/dL RDW Std Deviation 45.8 (28.0-62.0) fl RDW Coeff of Froylan 15 (11.0-15.0) % Plt Count 378 (150-400) K/uL MPV 9.10 (7.40-12.00) fL Neut % (Auto) 73.5 (48.0-80.0) % Lymph % (Auto) 20.1 (16.0-40.0) % [place] % (Auto) 4.5 (0.0-15.0) % Eos % (Auto) 1.3 (0.0-7.0) % Baso % (Auto) 0.6 (0.0-1.5) % Neut # (Auto) 7.0 H (1.4-5.7) K/uL Lymph # (Auto) 1.9 (0.6-2.4) K/uL [place] # (Auto) 0.4 (0.0-0.8) K/uL Eos # (Auto) 0.1 (0.0-0.7) K/uL Baso # (Auto) 0.1 (0.0-0.1) K/uL Nucleated RBC % 0.0 /100WBC Nucleated RBCs # 0 K/uL INR 1.02 D-Dimer, Quantitative 0.85 H (0.0-0.52) mg/LFEU Sodium 138 (136-145) mmol/L Potassium 4.0 (3.5-5.1) mmol/L Chloride 105 (98-107) mmol/L Carbon Dioxide 25.4 (21.0-32.0) mmol/L BUN 11 (7.0-18.0) mg/dL Creatinine 0.8 (0.6-1.0) mg/dL Est Cr Clr Drug Dosing 62.07 mL/min Estimated GFR (MDRD) > 60.0 ml/min Glucose 96 (74-106) mg/dL Hemoglobin A1c (4.5-6.2) % Calcium 8.7 (8.5-10.1) mg/dL Total Bilirubin 0.4 (0.2-1.0) mg/dL AST 27 (15-37) IU/L ALT 20 (14-63) IU/L Alkaline Phosphatase 78 (46-116) U/L Troponin I < 0.050 (0.000-0.056) ng/mL Total Protein 7.6 (6.4-8.2) g/dL Albumin 3.7 (3.4-5.0) g/dL Globulin 3.9 H (2.0-3.5) g/dL Albumin/Globulin Ratio 1.0 L (1.3-2.8) Triglycerides (0-200) mg/dL Cholesterol (50-200) mg/dL LDL Cholesterol, Calc (60-180) mg/dL VLDL Cholesterol (5-55) mg/dL HDL Cholesterol (40-60) mg/dL Cholesterol/HDL Ratio (3.3-6.0) Urine Color Urine Appearance Urine pH (5.0-8.0) Ur Specific [place] (1.001-1.035) Urine Protein (NEGATIVE) mg/dL Urine Glucose (UA) (NEGATIVE) mg/dL Urine Ketones (NEGATIVE) mg/dL Urine Occult Blood (NEGATIVE) Urine Nitrite (NEGATIVE) Urine Bilirubin (NEGATIVE) Urine Urobilinogen (<2.0) EU/dL Ur Leukocyte Esterase (NEGATIVE) Urine RBC (0-2/HPF) Urine WBC (0-5/HPF) Ur Epithelial Cells (NONE-FEW) Urine Bacteria (NEGATIVE) 09/29/17 09/29/17 09/29/17 Range/Units 16:40 16:50 18:48 WBC (4.0-11.0) K/uL RBC (4.30-5.90) M/uL Hgb (12.0-16.0) g/dL Hct (36.0-46.0) % MCV (80.0-98.0) fL MCH (27.0-32.0) pg MCHC (31.0-37.0) g/dL RDW Std Deviation (28.0-62.0) fl RDW Coeff of Froylan (11.0-15.0) % Plt Count (150-400) K/uL MPV (7.40-12.00) fL Neut % (Auto) (48.0-80.0) % Lymph % (Auto) (16.0-40.0) % [place] % (Auto) (0.0-15.0) % Eos % (Auto) (0.0-7.0) % Baso % (Auto) (0.0-1.5) % Neut # (Auto) (1.4-5.7) K/uL Lymph # (Auto) (0.6-2.4) K/uL [place] # (Auto) (0.0-0.8) K/uL Eos # (Auto) (0.0-0.7) K/uL Baso # (Auto) (0.0-0.1) K/uL Nucleated RBC % /100WBC Nucleated RBCs # K/uL INR D-Dimer, Quantitative (0.0-0.52) mg/LFEU Sodium (136-145) mmol/L Potassium (3.5-5.1) mmol/L Chloride (98-107) mmol/L Carbon Dioxide (21.0-32.0) mmol/L BUN (7.0-18.0) mg/dL Creatinine (0.6-1.0) mg/dL Est Cr Clr Drug Dosing mL/min Estimated GFR (MDRD) ml/min Glucose (74-106) mg/dL Hemoglobin A1c (4.5-6.2) % Calcium (8.5-10.1) mg/dL Total Bilirubin (0.2-1.0) mg/dL AST (15-37) IU/L ALT (14-63) IU/L Alkaline Phosphatase (46-116) U/L Troponin I < 0.050 < 0.050 (0.000-0.056) ng/mL Total Protein (6.4-8.2) g/dL Albumin (3.4-5.0) g/dL Globulin (2.0-3.5) g/dL Albumin/Globulin Ratio (1.3-2.8) Triglycerides (0-200) mg/dL Cholesterol (50-200) mg/dL LDL Cholesterol, Calc (60-180) mg/dL VLDL Cholesterol (5-55) mg/dL HDL Cholesterol (40-60) mg/dL Cholesterol/HDL Ratio (3.3-6.0) Urine Color YELLOW Urine Appearance CLEAR Urine pH 7.5 (5.0-8.0) Ur Specific [place] 1.015 (1.001-1.035) Urine Protein NEGATIVE (NEGATIVE) mg/dL Urine Glucose (UA) NEGATIVE (NEGATIVE) mg/dL Urine Ketones NEGATIVE (NEGATIVE) mg/dL Urine Occult Blood NEGATIVE (NEGATIVE) Urine Nitrite NEGATIVE (NEGATIVE) Urine Bilirubin NEGATIVE (NEGATIVE) Urine Urobilinogen 0.2 (<2.0) EU/dL Ur Leukocyte Esterase NEGATIVE (NEGATIVE) Urine RBC 0-1 (0-2/HPF) Urine WBC 0-2 (0-5/HPF) Ur Epithelial Cells MODERATE (NONE-FEW) Urine Bacteria FEW (NEGATIVE) 09/30/17 09/30/17 09/30/17 Range/Units 00:38 04:47 04:47 WBC 6.02 (4.0-11.0) K/uL RBC 3.97 L (4.30-5.90) M/uL Hgb 10.8 L (12.0-16.0) g/dL Hct 34.1 L (36.0-46.0) % MCV 85.9 (80.0-98.0) fL MCH 27.2 (27.0-32.0) pg MCHC 31.7 (31.0-37.0) g/dL RDW Std Deviation 44.9 (28.0-62.0) fl RDW Coeff of Froylan 14 (11.0-15.0) % Plt Count 292 (150-400) K/uL MPV 8.90 (7.40-12.00) fL Neut % (Auto) (48.0-80.0) % Lymph % (Auto) (16.0-40.0) % [place] % (Auto) (0.0-15.0) % Eos % (Auto) (0.0-7.0) % Baso % (Auto) (0.0-1.5) % Neut # (Auto) (1.4-5.7) K/uL Lymph # (Auto) (0.6-2.4) K/uL [place] # (Auto) (0.0-0.8) K/uL Eos # (Auto) (0.0-0.7) K/uL Baso # (Auto) (0.0-0.1) K/uL Nucleated RBC % 0.0 /100WBC Nucleated RBCs # 0 K/uL INR D-Dimer, Quantitative (0.0-0.52) mg/LFEU Sodium 136 (136-145) mmol/L Potassium 4.0 (3.5-5.1) mmol/L Chloride 105 (98-107) mmol/L Carbon Dioxide 24.7 (21.0-32.0) mmol/L BUN 11 (7.0-18.0) mg/dL Creatinine 0.8 (0.6-1.0) mg/dL Est Cr Clr Drug Dosing 62.07 mL/min Estimated GFR (MDRD) > 60.0 ml/min Glucose 94 (74-106) mg/dL Hemoglobin A1c (4.5-6.2) % Calcium 8.3 L (8.5-10.1) mg/dL Total Bilirubin 0.4 (0.2-1.0) mg/dL AST 16 (15-37) IU/L ALT 17 (14-63) IU/L Alkaline Phosphatase 74 (46-116) U/L Troponin I < 0.050 (0.000-0.056) ng/mL Total Protein 6.4 (6.4-8.2) g/dL Albumin 3.1 L (3.4-5.0) g/dL Globulin 3.3 (2.0-3.5) g/dL Albumin/Globulin Ratio 0.9 L (1.3-2.8) Triglycerides (0-200) mg/dL Cholesterol (50-200) mg/dL LDL Cholesterol, Calc (60-180) mg/dL VLDL Cholesterol (5-55) mg/dL HDL Cholesterol (40-60) mg/dL Cholesterol/HDL Ratio (3.3-6.0) Urine Color Urine Appearance Urine pH (5.0-8.0) Ur Specific [place] (1.001-1.035) Urine Protein (NEGATIVE) mg/dL Urine Glucose (UA) (NEGATIVE) mg/dL Urine Ketones (NEGATIVE) mg/dL Urine Occult Blood (NEGATIVE) Urine Nitrite (NEGATIVE) Urine Bilirubin (NEGATIVE) Urine Urobilinogen (<2.0) EU/dL Ur Leukocyte Esterase (NEGATIVE) Urine RBC (0-2/HPF) Urine WBC (0-5/HPF) Ur Epithelial Cells (NONE-FEW) Urine Bacteria (NEGATIVE) 09/30/17 09/30/17 Range/Units 04:47 04:47 WBC (4.0-11.0) K/uL RBC (4.30-5.90) M/uL Hgb (12.0-16.0) g/dL Hct (36.0-46.0) % MCV (80.0-98.0) fL MCH (27.0-32.0) pg MCHC (31.0-37.0) g/dL RDW Std Deviation (28.0-62.0) fl RDW Coeff of Froylan (11.0-15.0) % Plt Count (150-400) K/uL MPV (7.40-12.00) fL Neut % (Auto) (48.0-80.0) % Lymph % (Auto) (16.0-40.0) % [place] % (Auto) (0.0-15.0) % Eos % (Auto) (0.0-7.0) % Baso % (Auto) (0.0-1.5) % Neut # (Auto) (1.4-5.7) K/uL Lymph # (Auto) (0.6-2.4) K/uL [place] # (Auto) (0.0-0.8) K/uL Eos # (Auto) (0.0-0.7) K/uL Baso # (Auto) (0.0-0.1) K/uL Nucleated RBC % /100WBC Nucleated RBCs # K/uL INR D-Dimer, Quantitative (0.0-0.52) mg/LFEU Sodium (136-145) mmol/L Potassium (3.5-5.1) mmol/L Chloride (98-107) mmol/L Carbon Dioxide (21.0-32.0) mmol/L BUN (7.0-18.0) mg/dL Creatinine (0.6-1.0) mg/dL Est Cr Clr Drug Dosing mL/min Estimated GFR (MDRD) ml/min Glucose (74-106) mg/dL Hemoglobin A1c 5.7 (4.5-6.2) % Calcium (8.5-10.1) mg/dL Total Bilirubin (0.2-1.0) mg/dL AST (15-37) IU/L ALT (14-63) IU/L Alkaline Phosphatase (46-116) U/L Troponin I (0.000-0.056) ng/mL Total Protein (6.4-8.2) g/dL Albumin (3.4-5.0) g/dL Globulin (2.0-3.5) g/dL Albumin/Globulin Ratio (1.3-2.8) Triglycerides 176 (0-200) mg/dL Cholesterol 150 (50-200) mg/dL LDL Cholesterol, Calc 49 L (60-180) mg/dL VLDL Cholesterol 35 (5-55) mg/dL HDL Cholesterol 66 H (40-60) mg/dL Cholesterol/HDL Ratio 2.3 L (3.3-6.0) Urine Color Urine Appearance Urine pH (5.0-8.0) Ur Specific [place] (1.001-1.035) Urine Protein (NEGATIVE) mg/dL Urine Glucose (UA) (NEGATIVE) mg/dL Urine Ketones (NEGATIVE) mg/dL Urine Occult Blood (NEGATIVE) Urine Nitrite (NEGATIVE) Urine Bilirubin (NEGATIVE) Urine Urobilinogen (<2.0) EU/dL Ur Leukocyte Esterase (NEGATIVE) Urine RBC (0-2/HPF) Urine WBC (0-5/HPF) Ur Epithelial Cells (NONE-FEW) Urine Bacteria (NEGATIVE) Result Diagrams: 09/30/17 04:47 09/30/17 04:47 EKG INTERPRETATION EKG Date: 09/29/17 Rhythm: NSR ST-T: Depressed Problem List Initiated/Reviewed/Updated: Yes Orders Last 24hrs: Active Orders 24 hr Category Date Time Status Patient Status [ADT] Stat ADT 09/29/17 16:33 Active Cardiac Monitoring [RC] CONTINUOUS Care 09/29/17 18:31 Active Cardiac Monitoring [RC] Q8H Care 09/29/17 13:15 Active Oxygen Therapy [RC] ASDIRECTED Care 09/29/17 13:15 Active Oxygen Therapy [RC] PRN Care 09/29/17 18:30 Active RT Aerosol Therapy [RC] ASDIRECTED Care 09/29/17 18:32 Active Up ad Laura [RC] ASDIRECTED Care 09/29/17 18:30 Active VTE/DVT Education [RC] PER UNIT ROUTINE Care 09/29/17 18:30 Active Vital Signs [RC] Q4H Care 09/29/17 18:30 Active Heart Healthy Diet [DIET] Diet 09/29/17 Dinner Active CBC W/O DIFF,HEMOGRAM [HEME] AM Lab 10/01/17 05:11 Ordered CBC W/O DIFF,HEMOGRAM [HEME] AM Lab 10/02/17 05:11 Ordered COMPREHENSIVE METABOLIC PN,CMP [CHEM] AM Lab 10/01/17 05:11 Ordered COMPREHENSIVE METABOLIC PN,CMP [CHEM] AM Lab 10/02/17 05:11 Ordered UA W/MICROSCOPIC [URIN] Stat Lab 09/29/17 16:50 Ordered Albuterol/Ipratropium [DuoNeb 3.0-0.5 MG/3 ML] Med 09/29/17 18:30 Active 3 ml NEB Q4H PRN Enoxaparin [Lovenox] Med 09/29/17 23:00 Active 80 mg SUBCUT Q12H HCTZ/Triamterene [Maxzide 25-37.5 MG] Med 09/29/17 18:50 Active 1 each PO DAILY PRN Metoprolol Succinate [Toprol XL] Med 09/30/17 09:00 Active 25 mg PO DAILY Morphine Med 09/29/17 18:30 Active 2 mg IVPUSH Q2H PRN Nitroglycerin [Nitro-Bid 2%] Med 09/29/17 18:35 Active 1 gm TOP Q6H PRN Omeprazole Med 09/30/17 07:00 Active 40 mg PO DAILY@0700 Ondansetron [Zofran] Med 09/29/17 18:30 Active 4 mg IVPUSH Q4H PRN Sodium Chloride 0.9% [Saline Flush] Med 09/29/17 13:15 Active 10 ml FLUSH ASDIRECTED PRN Sodium Chloride 0.9% [Saline Flush] Med 09/29/17 13:15 Active 2.5 ml FLUSH ASDIRECTED PRN atorvaSTATin [Lipitor] Med 09/29/17 21:00 Active 40 mg PO BEDTIME Saline Lock Insert [OM.PC] Stat Oth 09/29/17 13:15 Ordered Sequential Compression Device [OM.PC] Per Unit Routine Oth 09/29/17 18:31 Ordered Resuscitation Status Routine Resus Stat 09/29/17 18:30 Ordered Medication Orders Albuterol/Ipratropium (Duoneb 3.0-0.5 Mg/3 Ml) 3 ml NEB Q4H PRN PRN Reason: Shortness Of Breath/wheezing Atorvastatin Calcium (Lipitor) 40 mg PO BEDTIME [facility] Last Admin: 09/29/17 21:29 Dose: 40 mg Enoxaparin Sodium (Lovenox) 80 mg SUBCUT Q12H [facility] Last Admin: 09/29/17 23:16 Dose: 80 mg Metoprolol Succinate (Toprol Xl) 25 mg PO DAILY [facility] Last Admin: 09/30/17 08:54 Dose: 25 mg Morphine Sulfate (Morphine) 2 mg IVPUSH Q2H PRN PRN Reason: Pain (severe 7-10) Stop: 09/30/17 18:31 Nitroglycerin (Nitro-Bid 2%) 1 gm TOP Q6H PRN PRN Reason: Chest Pain Omeprazole (Omeprazole) 40 mg PO DAILY@0700 [facility] Last Admin: 09/30/17 06:06 Dose: 40 mg Ondansetron HCl (Zofran) 4 mg IVPUSH Q4H PRN PRN Reason: Nausea Sodium Chloride (Saline Flush) 10 ml FLUSH ASDIRECTED PRN PRN Reason: Keep Vein Open Sodium Chloride (Saline Flush) 2.5 ml FLUSH ASDIRECTED PRN PRN Reason: Keep Vein Open Triamterene/HCTZ (Maxzide 25-37.5 Mg) 1 each PO DAILY PRN PRN Reason: EDEMA Acute coronary syndrome will admit patient to medical telemetry , troponin q 6 h 2 sets , aspirin 325 mg po daily , lipid profile, hemoglobin A1c , atorvastatin 80 mg po daily lovenox 1 mg /kg sq q 12 h HTN uc - will continue patient with his home medications, her Bp is stable right now, metoprolol 25 mg po daily , maxzid 37.5/25 mg po daily
[2017-09-30] MEDS: Enoxaparin 100 MG/1 ML Syringe SUBCUT SCH (12:11)
== END 2017-09-30 13:11 ==
LOC: MW.ED 13:07 → MW.MS 16:33
PROVIDERS: ADMIT Internal Medicine; ATTEND Internal Medicine
DX: I24.9 Acute ischemic heart disease, unspecified (principal); I10 Essential (primary) hypertension; K21.9 Gastro-esophageal reflux disease without esophagitis; M19.90 Unspecified osteoarthritis, unspecified site; F41.9 Anxiety disorder, unspecified; Z82.49 Family history of ischemic heart disease and other diseases of the circulatory system; Z88.0 Allergy status to penicillin; Z79.899 Other long term (current) drug therapy
CPT/HCPCS: 36415; 71045; 71275; 80053; 80061; 81001; 83036; 84484; 85025; 85027; 85379; 85610; 93005; 96361; 96372; 96374; 99285; A9270; G0378; J1650; J7040; Q9967

== ENCOUNTER 2018-10-27 07:52 | Day surgery (SDC) | payer BC, OTHER ==
[~2018-10-27 07:52] MED LIST changes: +Lactated Ringers 1,000 ML IV SCH; +Sodium Chloride 0.9% 10 ML SDV IV PRN; -ceFAZolin 2 GM in Premix Bag 1 BAG IV ONE
[2018-10-27] MEDS ORDERED: Propofol 200 MG/20 ML SDV ONE (08:03)
--- NOTE | 2018-10-27 08:40 | PCM.PREANE ---
Preanesthetic Assessment - Anesthesia/Transfusion/Family Hx Anesthesia History: Prior Anesthesia Reaction Family History of Anesthesia Reaction: No Transfusion History: No Prior Transfusion(s) - Review of Systems General: No Symptoms Pulmonary: No Symptoms Cardiovascular: No Symptoms Gastrointestinal: No Symptoms Neurological: No Symptoms Other: Reports: None - Physical Assessment NPO Status Date: 10/27/18 NPO Status Time: 06:00 O2 Sat by Pulse Oximetry: 99 Respiratory Rate: 16 Vital Signs: Last Vital Signs Temp 97.3 F 10/27/18 08:15 Pulse 85 10/27/18 08:15 Resp 16 10/27/18 08:15 BP 151/82 H 10/27/18 08:15 Pulse Ox 99 10/27/18 08:15 Height: 5 ft 1 in Weight: 82.554 kg ASA Class: 2 Mental Status: Alert & Oriented x3 Airway Class: Mallampati = 2 Dentition: Reports: Normal Dentition ROM/Head Extension: Full Lungs: Clear to Auscultation, Normal Respiratory Effort Cardiovascular: Regular Rate, Regular Rhythm - Allergies Allergies/Adverse Reactions: Allergies Allergy/AdvReac Type Severity Reaction Status Date / Time Penicillins Allergy Swelling Verified 10/21/18 11:39 - Blood Blood Available: No - Anesthesia Plan Pre-Op Medication Ordered: None - Acknowledgements Anesthesia Type Planned: General Anesthesia Pt an Appropriate Candidate for the Planned Anesthesia: Yes Alternatives and Risks of Anesthesia Discussed w Pt/Guardian: Yes Pt/Guardian Understands and Agrees with Anesthesia Plan: Yes Additional Comments: PMH: gerd, htn, s//p hyst, PLAN: tiva PreAnesthesia Questionnaire HEENT History: Reports: Other (See Below) Other HEENT History: wears glasses Cardiovascular History: Reports: Heart Murmur, Hypertension Respiratory History: Reports: None Gastrointestinal History: Reports: GERD Genitourinary History: Reports: UTI, Recurrent 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: Musculoskeletal History: Reports: Osteoarthritis Neurological History: Reports: None Psychiatric History: Reports: Anxiety Endocrine/Metabolic History: Reports: Obesity/BMI 30+ Hematologic History: Reports: Anesthesia Reaction Other Hematologic History: Excessive nausea and vomiting with anesthesia - Infectious Disease History Infectious Disease History: Reports: Chicken Pox - Past Surgical History Head Surgeries/Procedures: Reports: None GI Surgical History: Reports: Other (See Below) Other GI Surgeries/Procedures: Abdominoplasty Female Surgical History: Reports: Section, Hysterectomy, Salpingo- Oophorectomy, Tubal Ligation Other Female Surgeries/Procedures: hx colposcopy cervix with bx, abdominoplasty Musculoskeletal Surgical History: Reports: Arthroscopic Knee Dermatological Surgical History: Reports: Plastic Surgical Reconstruction/Repair - SUBSTANCE USE Smoking Status *Q: Never Smoker Recreational Drug Use History: No - HOME MEDS Home Medications: Home Meds Metoprolol Succinate 25 mg PO DAILY 04/05/17 [History] Omeprazole 40 mg PO DAILY 04/05/17 [History] Triamterene/Hydrochlorothiazid [Triamterene-HCTZ 37.5-25 MG] 1 tab PO DAILY [History] Estradiol 1 mg PO DAILY 09/29/17 [History] Phentermine/Topiramate [Qsymia 15 mg-92 mg Capsule] 1 cap PO QAM 10/21/18 [ History] - CURRENT (IN HOUSE) MEDS Current Meds: Current Medications Lactated Ringer's (Ringers, Lactated) 1,000 mls @ 125 mls/hr IV ASDIRECTED [facility] Last Admin: 10/27/18 08:15 Dose: 125 mls/hr Sodium Chloride (Saline Flush) 10 ml FLUSH ASDIRECTED PRN PRN Reason: Keep Vein Open Sodium Chloride (Saline Flush) 2.5 ml FLUSH ASDIRECTED PRN PRN Reason: Keep Vein Open Sodium Chloride (Saline Flush) 10 ml FLUSH ASDIRECTED PRN PRN Reason: Keep Vein Open Sodium Chloride (Saline Flush) 2.5 ml FLUSH ASDIRECTED PRN PRN Reason: Keep Vein Open Sodium Chloride (Normal Saline) 10 ml IV ASDIRECTED PRN PRN Reason: IV Use Discontinued Medications Propofol (Diprivan 20 Ml) Confirm Administered Dose 400 mg .ROUTE .STK-MED ONE Stop: 10/27/18 08:04
[2018-10-27] MEDS ORDERED: fentaNYL 100 MCG/2 ML SDV ONE (09:32)
--- NOTE | 2018-10-27 09:43 | PCM.PREANE ---
Preanesthetic Assessment - Anesthesia/Transfusion/Family Hx Anesthesia History: Prior Anesthesia Reaction Family History of Anesthesia Reaction: No Transfusion History: No Prior Transfusion(s) - Review of Systems General: No Symptoms Pulmonary: No Symptoms Cardiovascular: No Symptoms Gastrointestinal: No Symptoms Neurological: No Symptoms Other: Reports: None - Physical Assessment NPO Status Date: 10/27/18 NPO Status Time: 06:00 O2 Sat by Pulse Oximetry: 99 Respiratory Rate: 16 Vital Signs: Last Vital Signs Temp 97.3 F 10/27/18 08:15 Pulse 85 10/27/18 08:15 Resp 16 10/27/18 08:40 BP 151/82 H 10/27/18 08:15 Pulse Ox 99 10/27/18 08:40 Height: 5 ft 1 in Weight: 82.554 kg ASA Class: 2 Mental Status: Alert & Oriented x3 Airway Class: Mallampati = 2 Dentition: Reports: Normal Dentition ROM/Head Extension: Full Lungs: Clear to Auscultation, Normal Respiratory Effort Cardiovascular: Regular Rate, Regular Rhythm - Allergies Allergies/Adverse Reactions: Allergies Allergy/AdvReac Type Severity Reaction Status Date / Time Penicillins Allergy Swelling Verified 10/21/18 11:39 - Blood Blood Available: No - Anesthesia Plan Pre-Op Medication Ordered: None - Acknowledgements Anesthesia Type Planned: General Anesthesia Pt an Appropriate Candidate for the Planned Anesthesia: Yes Alternatives and Risks of Anesthesia Discussed w Pt/Guardian: Yes Pt/Guardian Understands and Agrees with Anesthesia Plan: Yes Additional Comments: Anesth prob list: hx of tia 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- on aspirin, htn- on verapamil, chronic neuropathic pain LLE PLAN: tiva PreAnesthesia Questionnaire HEENT History: Reports: Other (See Below) Other HEENT History: wears glasses Cardiovascular History: Reports: Heart Murmur, Hypertension Respiratory History: Reports: None Gastrointestinal History: Reports: GERD Genitourinary History: Reports: UTI, Recurrent P[employer] 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: Reports: Musculoskeletal History: Reports: Osteoarthritis Neurological History: Reports: None Psychiatric History: Reports: Anxiety Endocrine/Metabolic History: Reports: Obesity/BMI 30+ Hematologic History: Reports: Anesthesia Reaction Other Hematologic History: Excessive nausea and vomiting with anesthesia - Infectious Disease History Infectious Disease History: Reports: Chicken Pox - Past Surgical History Head Surgeries/Procedures: Reports: None GI Surgical History: Reports: Other (See Below) Other GI Surgeries/Procedures: Abdominoplasty Female Surgical History: Reports: Section, Hysterectomy, Salpingo- Oophorectomy, Tubal Ligation Other Female Surgeries/Procedures: hx colposcopy cervix with bx, abdominoplasty Musculoskeletal Surgical History: Reports: Arthroscopic Knee Dermatological Surgical History: Reports: Plastic Surgical Reconstruction/Repair - SUBSTANCE USE Smoking Status *Q: Never Smoker Recreational Drug Use History: No - HOME MEDS Home Medications: Home Meds Metoprolol Succinate 25 mg PO DAILY 04/05/17 [History] Omeprazole 40 mg PO DAILY 04/05/17 [History] Triamterene/Hydrochlorothiazid [Triamterene-HCTZ 37.5-25 MG] 1 tab PO DAILY [History] Estradiol 1 mg PO DAILY 09/29/17 [History] Phentermine/Topiramate [Qsymia 15 mg-92 mg Capsule] 1 cap PO QAM 10/21/18 [ History] - CURRENT (IN HOUSE) MEDS Current Meds: Current Medications Lactated Ringer's (Ringers, Lactated) 1,000 mls @ 125 mls/hr IV ASDIRECTED GAEL Last Admin: 10/27/18 08:15 Dose: 125 mls/hr Sodium Chloride (Saline Flush) 10 ml FLUSH ASDIRECTED PRN PRN Reason: Keep Vein Open Sodium Chloride (Saline Flush) 2.5 ml FLUSH ASDIRECTED PRN PRN Reason: Keep Vein Open Sodium Chloride (Saline Flush) 10 ml FLUSH ASDIRECTED PRN PRN Reason: Keep Vein Open Sodium Chloride (Saline Flush) 2.5 ml FLUSH ASDIRECTED PRN PRN Reason: Keep Vein Open Sodium Chloride (Normal Saline) 10 ml IV ASDIRECTED PRN PRN Reason: IV Use Discontinued Medications Fentanyl (Sublimaze) Confirm Administered Dose 100 mcg .ROUTE .STK-MED ONE Stop: 10/27/18 09:33 Propofol (Diprivan 20 Ml) Confirm Administered Dose 400 mg .ROUTE .STK-MED ONE Stop: 10/27/18 08:04
--- NOTE | 2018-10-27 09:47 | PCM.OPNOTE ---
- General Post-Op/Procedure Note Date of Surgery/Procedure: 10/27/18 Operative Procedure(s): EGD with Biospy and Colonoscopy Findings: Hyperplastic gastric Polyp Pre Op Diagnosis: Post Fecal occult test Post-Op Diagnosis: Post Fecal Occult, Single hyperplastic Gastric Poylp Primary Surgeon: Michelle Campbell Condition: Good
--- NOTE | 2018-10-27 10:26 | PCM48HPAN ---
Post Anesthesia Note - EVALUATION WITHIN 48HRS OF ANESTHETIC Vital Signs in Normal Range: Yes Patient Participated in Evaluation: Yes Respiratory Function Stable: Yes Airway Patent: Yes Cardiovascular Function Stable: Yes Hydration Status Stable: Yes Pain Control Satisfactory: Yes Nausea and Vomiting Control Satisfactory: Yes Mental Status Recovered: Yes Pulse Rate: 59 SaO2: 99 Resp Rate: 16 Blood Pressure: 112/63
--- NOTE | 2018-10-27 13:30 | OR ---
SURGEON: MICHELLE CAMPBELL MD DATE OF PROCEDURE: 10/27/2018 PREOPERATIVE DIAGNOSIS: Positive fecal occult blood test. POSTOPERATIVE DIAGNOSIS: Hyperplastic gastric polyps. PROCEDURE PERFORMED: Diagnostic EGD and colonoscopy. PRIMARY SURGEON: Endoscopist, Dr. Michelle Campbell MD. ANESTHESIA: MAC. INSTRUMENT USED: Olympus endoscope and colonoscope. EXTENT OF EXAM: To the second portion of duodenum, to the cecum. PREPARATION: Good. LIMITATIONS: None. INDICATION FOR EXAMINATION: The patient is a 53-year-old female who recently was found to have a positive fecal occult blood test. She has a history of GERD and ulcers. Given these findings, I explained the need for diagnostic EGD as well as colonoscopy. I explained the procedure, expected perioperative course, and risks including bleeding, infection, or damage to surrounding structures including perforation. The patient verbalized understanding and wishes to proceed. PROCEDURE IN DETAIL: The patient was brought to the endoscopy suite and placed in the left lateral decubitus position. A time-out was completed verifying the patient's name, age, date of , allergies, and procedure to be performed. Monitored anesthesia care was induced and continuous oxygen was provided via nasal cannula throughout the procedure. A bite block was placed in the patient's mouth. A well- lubricated endoscope was placed in the patient's mouth and advanced under direct visualization to the second portion of duodenum. This appeared normal and a photograph was taken. The scope was then fully withdrawn while examining the color, texture, anatomy, and integrity of the mucosa of the upper GI tract. The duodenum appeared normal. The scope was then brought into the stomach and a photograph was taken of the pylorus and the GE junction. Both appeared normal. The gastric mucosa showed no signs of inflammation or ulceration. Biopsies were taken of the gastric antrum, body, and fundus and sent for histologic review and H. pylori testing. The patient was noted to have a couple of scattered hyperplastic-appearing polyps within the gastric body. One of these was taken using a cold biopsy forceps and sent to pathology. The scope was then brought into the distal esophagus. A photograph was taken of the Z-line which appeared normal. The esophageal mucosa was free of pathology. The scope was removed and this portion of procedure was terminated. A digital rectal exam was then performed. This exam was within normal limits. A well-lubricated colonoscope was inserted into the rectum and advanced under direct visualization to the level of the cecum. The cecum was identified by both visual and anatomic landmarks. A photograph was taken of the cecal cap, however, the scope was not retroflexed within the cecum. The scope was then fully withdrawn while examining the color, texture, anatomy, and integrity of the mucosa from the cecum to the anal canal. The findings were consistent with normal colonic mucosa. The scope was brought into the rectum and retroflexed to allow visualization of the anal canal opening. This appeared normal and a photograph was taken. The scope was then straightened out and fully withdrawn. The cecum to anus time was 6 minutes. The patient tolerated the procedure well and was taken to PACU in stable condition. ENDOSCOPIC DIAGNOSIS: Normal colonoscopy, hyperplastic gastric polyps. RECOMMENDATIONS: Follow up in clinic in 2 weeks. APRIL ESPOSITO /[id number]
== END 2018-10-27 10:25 | disposition home or self-care (01) ==
LOC: MW.SDS 07:52
PROVIDERS: ATTEND Surgery
DX: K29.51 Unspecified chronic gastritis with bleeding (principal); K31.7 Polyp of stomach and duodenum; K21.9 Gastro-esophageal reflux disease without esophagitis; I10 Essential (primary) hypertension; F32.9 Major depressive disorder, single episode, unspecified; M15.9 Polyosteoarthritis, unspecified; Z88.0 Allergy status to penicillin; Z87.11 Personal history of peptic ulcer disease; Z79.82 Long term (current) use of aspirin; Z79.899 Other long term (current) drug therapy
CPT/HCPCS: 43239; 45378; J2704; J3010; J7120

== ENCOUNTER 2023-06-08 09:45 | Emergency (ER) | payer BC, OTHER ==
[2023-06-08] MEDS ORDERED: Codeine/Promethazine 10-6.25 MG/5 ML Syrup 5 ML UD Syringe PO STA (10:30)
[2023-06-08] MEDS ORDERED: Sodium Chloride 0.9% 1,000 ML IV ONE (10:31)
[2023-06-08 10:40] LABS: BASOPHILS ABSOLUTE AUTO 0.05 K/uL (0.00-0.20); BASOPHILS PERCENT AUTO 0.5 % (0.0-1.0); EOSINOPHILS ABSOLUTE AUTO 0.15 K/uL (0.00-0.45); EOSINOPHILS PERCENT AUTO 1.5 % (0.0-6.0); HEMATOCRIT 36.4 % (37.0-47.0); HEMOGLOBIN 11.8 g/dL (12.0-16.0); IMMATURE GRAN ABSOLUTE AUTO 0.07 K/uL (0.00-0.05); IMMATURE GRAN PERCENT AUTO 0.7 % (0.0-0.4); LYMPHOCYTES ABSOLUTE AUTO 2.07 K/uL (1.00-4.80); LYMPHOCYTES PERCENT AUTO 21.1 % (24.0-44.0); MEAN CORPUSCULAR HEMOGLOBIN 28.9 pg (28.0-32.0); MEAN CORPUSCULAR HGB CONC 32.4 g/dL (32.0-36.0); MEAN PLATELET VOLUME 8.7 fL (9.4-12.3); MONOCYTES ABSOLUTE AUTO 0.68 K/uL (0.00-0.80); MONOCYTES PERCENT AUTO 6.9 % (0.0-8.0); NEUTROPHILS ABSOLUTE AUTO 6.78 K/uL (1.80-7.70); NEUTROPHILS PERCENT AUTO 69.3 % (41.0-71.0); PLATELET COUNT,PLT 399 K/uL (150-400); RED BLOOD CELL COUNT 4.09 M/uL (4.10-5.30)
[2023-06-08 11:09] LABS: A/G RATIO 0.8 (0.9-1.6); ALBUMIN 3.2 g/dL (3.4-5.0); BILIRUBIN TOTAL 0.3 mg/dL (0.2-1.0); CARBON DIOXIDE,CO2 26.1 mmol/L (21.0-32.0); CREATININE 0.7 mg/dL (0.6-1.0); EST CRCL DRUG DOSING (CG) 66.91 mL/min; POTASSIUM,K 4.1 mmol/L (3.5-5.1); PROTEIN TOTAL,TP 7.4 g/dL (6.4-8.2)
[2023-06-08 11:12] LABS: CORONAVIRUS COVID-19 NAA POSITIVE (NEGATIVE); INFLUENZA A NAA NEGATIVE (NEGATIVE); INFLUENZA B NAA NEGATIVE (NEGATIVE); RESPIRATORY SYNCYTIAL VIR NAA NEGATIVE (NEGATIVE)
== END 2023-06-08 11:48 | disposition home or self-care (01) ==
LOC: MW.ED 09:45
DX: U07.1 COVID-19 (principal); K21.9 Gastro-esophageal reflux disease without esophagitis; I10 Essential (primary) hypertension; E66.9 Obesity, unspecified; Z68.29 Body mass index [BMI] 29.0-29.9, adult; Z88.0 Allergy status to penicillin; Z79.899 Other long term (current) drug therapy; Z90.710 Acquired absence of both cervix and uterus
CPT/HCPCS: 0241U; 36415; 71045; 80053; 85025; 93005; 96360; 99284; J7030; J3490